=== PATIENT | female | born 1970 | race African-American/Black ===

== ENCOUNTER → 2018-01-14 | Outpatient (CLI) | payer BC, OTHER ==
[2018-01-14 08:19] LABS: CREATININE 0.9 mg/dL (0.6-1.0)
== END ==
LOC: CAT 07:03
PROVIDERS: Surgery
DX: K44.9 Diaphragmatic hernia without obstruction or gangrene (principal); N88.8 Other specified noninflammatory disorders of cervix uteri; R14.0 Abdominal distension (gaseous)